=== PATIENT | male | born 1995 | race Hispanic/Latino ===

== ENCOUNTER 2019-03-05 11:04 | Outpatient (CLI) | payer MEDICAID ==
[2019-03-05 12:11] LABS: Hematocrit 39.1 % (35.5-45.6); Hemoglobin 12.9 gm/dl (11.8-15.2); Mean Corpuscular HGB Conc 33 % (32-34); Mean Corpuscular Volume 89 fl (84-94); Platelet Count 133 K/mm3 (140-440); Red Cell Distribution Width 13.8 % (13.2-15.2)
[2019-03-05 12:23] LABS: Alanine Aminotransferase 6 units/L (7-56); Albumin 4.2 g/dL (3.9-5); BUN/Creatinine Ratio 10; Blood Urea Nitrogen 6 mg/dL (9-20); Calcium 8.9 mg/dL (8.4-10.2); Chol/HDL Ratio 4.85 %; HDL Cholesterol 35 mg/dL (40-59); Hemolysis Index 1; LDL Cholesterol,Direct 109 mg/dL (50-130)
[2019-03-08 12:43] LABS: Vitamin D, 25-OH, D2 <4 ng/mL
== END 2019-03-05 11:05 | disposition home or self-care (01) ==
LOC: LAB 11:04
PROVIDERS: ATTEND Internal Medicine
DX: Z13.21 Encounter for screening for nutritional disorder (principal); Z13.29 Encounter for screening for other suspected endocrine disorder; E78.5 Hyperlipidemia, unspecified; E55.9 Vitamin D deficiency, unspecified; R73.09 Other abnormal glucose; E78.00 Pure hypercholesterolemia, unspecified; K21.9 Gastro-esophageal reflux disease without esophagitis; J45.909 Unspecified asthma, uncomplicated; F31.9 Bipolar disorder, unspecified; F41.9 Anxiety disorder, unspecified; F90.9 Attention-deficit hyperactivity disorder, unspecified type; Z79.899 Other long term (current) drug therapy
CPT/HCPCS: 36415; 80053; 80061; 82306; 82607; 83036; 84443; 85027